=== PATIENT | male | born 1995 | race Two or more races ===

== ENCOUNTER 2018-12-14 18:44 | Emergency (ER) | payer SELFPAY ==
[~2018-12-14] VITALS: Ht 172.7 cm; Wt 90.0 kg
[2018-12-15 00:46] VITALS: BP 128/68
== END 2018-12-15 01:14 | disposition home or self-care (01) ==
LOC: ER 18:44
DX: T40.0X1A Poisoning by opium, accidental (unintentional), initial encounter (principal); I10 Essential (primary) hypertension; Y92.89 Other specified places as the place of occurrence of the external cause
CPT/HCPCS: 99283